=== PATIENT | female | born 1980 | race Caucasian/White ===

== ENCOUNTER 2017-05-15 12:30 | Emergency (ER) | payer OTHER, BC ==
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
[2017-05-15 14:50] VITALS: BP 101/48
== END 2017-05-15 14:50 | disposition home or self-care (01) ==
LOC: ER 12:30
DX: S16.1XXA Strain of muscle, fascia and tendon at neck level, initial encounter (principal); S39.012A Strain of muscle, fascia and tendon of lower back, initial encounter; M25.511 Pain in right shoulder; M62.830 Muscle spasm of back; M54.2 Cervicalgia; V43.52XA Car driver injured in collision with other type car in traffic accident, initial encounter; Z91.041 Radiographic dye allergy status; Z91.040 Latex allergy status
CPT/HCPCS: 71046; 72040; 72110; 99284